=== PATIENT | female | born 1950 ===

== ENCOUNTER 2025-10-01 08:19 | Day surgery (SDC) | payer MEDICARE ==
[2025-10-01] MEDS ORDERED: Dexamethasone 4 MG/ML SDV IV ONE (08:20)
[2025-10-01] MEDS ORDERED: Midazolam 1 MG/ML 2 ML SDV IV ONE (08:20)
[2025-10-01] MEDS ORDERED: Sodium Chloride 0.9% 10 ML Syringe IV ONE (08:20)
[2025-10-01] MEDS ORDERED: Ondansetron 4 MG/2 ML SDV IVPUSH PRN (08:30)
[2025-10-01] MEDS: Moxifloxacin 0.5% Ophth Soln 3 ML Bottle EYELF ONE (08:44)
[2025-10-01] MEDS: Povidone-Iodine 5% Sterile Ophth Soln 30 ML Bottle EYELF ONE ×2 (08:46→10:06)
[2025-10-01] MEDS: Phenylephrine 10% Ophth Soln 5 ML Bot EYELF ONE (08:46)
[2025-10-01] MEDS: Timolol Maleate 0.5% Ophth Soln 5 ML Bottle EYELF ONE (08:47)
[2025-10-01] MEDS: Cataract Ophth Solution EYELF ONE (08:49)
[2025-10-01] MEDS: Apraclonidine 0.5% Ophth Soln 5 ML Bot EYELF ONE (10:07)
[2025-10-01] MEDS: Diclofenac Sodium 0.1% Ophth Soln 5 ML Bottle EYELF ONE (10:08)
[2025-10-01] MEDS: Dexamethasone/Neomycin/Polymyxin B Ophth Oint 3.5 GM Tube EYELF ONE (10:08)
[2025-10-01] MEDS ORDERED: Dexamethasone 4 MG/ML SDV ONE (10:11)
== END 2025-10-01 10:44 | disposition home or self-care (01) ==
LOC: DL.SDS 08:19
PROVIDERS: ATTEND Ophthalmology
DX: H25.813 Combined forms of age-related cataract, bilateral (principal); E78.00 Pure hypercholesterolemia, unspecified; Z87.891 Personal history of nicotine dependence
CPT/HCPCS: A9270-GY; J1100; J2003; J2250; J3373; J3490

== ENCOUNTER 2025-10-15 08:18 | Day surgery (SDC) | payer MEDICARE ==
[~2025-10-15 08:18] MED LIST: Dexamethasone 4 MG/ML SDV ONE
[2025-10-15] MEDS ORDERED: Midazolam 1 MG/ML 2 ML SDV IV ONE (08:19)
[2025-10-15] MEDS ORDERED: Sodium Chloride 0.9% 10 ML Syringe IV ONE (08:19)
[2025-10-15] MEDS ORDERED: Dexamethasone 4 MG/ML SDV IV ONE (08:19)
[2025-10-15] MEDS ORDERED: Ondansetron 4 MG/2 ML SDV IVPUSH PRN (08:30)
[2025-10-15] MEDS: Moxifloxacin 0.5% Ophth Soln 3 ML Bottle EYERT ONE (09:11)
[2025-10-15] MEDS: Povidone-Iodine 5% Sterile Ophth Soln 30 ML Bottle EYERT ONE ×2 (09:12→10:26)
[2025-10-15] MEDS: Phenylephrine 10% Ophth Soln 5 ML Bot EYERT ONE (09:13)
[2025-10-15] MEDS: Timolol Maleate 0.5% Ophth Soln 5 ML Bottle EYERT ONE (09:13)
[2025-10-15] MEDS: Cataract Ophth Solution EYERT ONE (09:14)
[2025-10-15] MEDS: Diclofenac Sodium 0.1% Ophth Soln 5 ML Bottle EYERT ONE (10:27)
[2025-10-15] MEDS: Apraclonidine 0.5% Ophth Soln 5 ML Bot EYERT ONE (10:27)
[2025-10-15] MEDS: Dexamethasone/Tobramycin 0.1-0.3% Ophth Oint 3.5 GM Tube EYERT ONE (10:28)
== END 2025-10-15 11:04 | disposition home or self-care (01) ==
LOC: DL.SDS 08:18
PROVIDERS: ATTEND Ophthalmology
DX: H25.811 Combined forms of age-related cataract, right eye (principal); E78.00 Pure hypercholesterolemia, unspecified; Z88.8 Allergy status to other drugs, medicaments and biological substances; Z88.2 Allergy status to sulfonamides; Z87.891 Personal history of nicotine dependence
CPT/HCPCS: A9270-GY; J1100; J2003; J2250; J3373; J3490; V2632